=== PATIENT | female | born 1965 | race Caucasian/White ===

== ENCOUNTER → 2016-11-01 10:15 | Outpatient (CLI) | payer BC ==
[2016-11-01 10:46] LABS: CREATININE - SERUM 0.9 mg/dL (0.6-1.3)
== END | disposition home or self-care (01) ==
LOC: D.LAB 10:15 → D.MRI 11:00
PROVIDERS: Neurological Surgery
DX: M54.14 Radiculopathy, thoracic region (principal)

== ENCOUNTER → 2018-11-26 10:07 | Outpatient (CLI) | payer BC | END | disposition home or self-care (01) | LOC: D.US 10:07 | PROVIDERS: ATTEND Internal Medicine Rheumatology | DX: R09.89 Other specified symptoms and signs involving the circulatory and respiratory systems (principal); E11.9 Type 2 diabetes mellitus without complications ==